=== PATIENT | female | born 1995 | race Two or more races ===

== ENCOUNTER 2023-05-21 05:30 | Day surgery (SDC) | payer OTHER ==
[~2023-05-21] VITALS: Ht 165.1 cm; Wt 118.8 kg
[2023-05-21] MEDS ORDERED: IBU800 MG PO (08:33)
[2023-05-21] MEDS ORDERED: NEURONTIN300 MG PO (08:34)
== END 2023-05-21 10:30 | disposition home or self-care (01) ==
LOC: CIR.AMB 05:30
PROVIDERS: ATTEND Obstetrics & Gynecology Gynecology
DX: Z30.2 Encounter for sterilization (principal); N83.8 Other noninflammatory disorders of ovary, fallopian tube and broad ligament; Z20.822 Contact with and (suspected) exposure to COVID-19